=== PATIENT | male | born 1960 | race Caucasian/White ===

== ENCOUNTER 2020-02-12 06:58 | Day surgery (SDC) | payer BC ==
[2020-02-12] MEDS ORDERED: Midazolam 1 MG/ML 2 ML SDV IV ONE ×5 (06:59→07:41)
[2020-02-12] MEDS ORDERED: fentaNYL 100 MCG/2 ML SDV IV ONE ×3 (06:59→07:39)
[2020-02-12] MEDS ORDERED: Dextrose 5%-0.45% NaCl 1,000 ML IV SCH (07:15)
[2020-02-12] MEDS ORDERED: fentaNYL 100 MCG/2 ML SDV ONE (07:25)
[2020-02-12] MEDS ORDERED: Midazolam 1 MG/ML 2 ML SDV ONE (07:25)
--- NOTE | 2020-02-12 14:12 | OR ---
DATE: 02/12/2020 PREOPERATIVE DIAGNOSIS: Screening colonoscopy. POSTOPERATIVE DIAGNOSIS: Screening colonoscopy. PROCEDURE: Total colonoscopy. ANESTHESIA: Conscious sedation. SPECIMEN: None. OPERATIVE FINDINGS: Mild sigmoid diverticulosis, otherwise normal. RECOMMENDATIONS: Followup screening colonoscopy in 10 years or sooner for symptoms. INDICATION FOR PROCEDURE: This 59-year-old male presents for screening colonoscopy. PROCEDURE IN DETAIL: After adequate preparation, a colonoscope was inserted into the rectum. This was easily passed all the way to the cecum. Confirmation of the cecum was made by visualization of the appendiceal opening, the ileocecal valve, and palpation in the right lower quadrant. The bowel prep was good. On withdrawal of the scope, the only abnormality noted was some scattered sigmoid diverticula. There were no masses, polyps, bleeding sites, evidence of colitis, or other abnormalities. Anal and rectal examinations were normal. Air was suctioned from the colon and the scope removed. [facility] /[id number]
== END 2020-02-12 09:50 | disposition home or self-care (01) ==
LOC: DL.ENDO 06:58
PROVIDERS: ATTEND Surgery
DX: Z12.11 Encounter for screening for malignant neoplasm of colon (principal); K57.30 Diverticulosis of large intestine without perforation or abscess without bleeding; Z98.890 Other specified postprocedural states
CPT/HCPCS: 45378; J2250; J3010; J7042; G0121